=== PATIENT | male | born 1990 | race Caucasian/White ===

== ENCOUNTER 2019-06-23 08:13 | Emergency (ER) | payer MEDICAID, OTHER ==
[~2019-06-23] VITALS: Ht 165.1 cm; Wt 59.0 kg
[~2019-06-23 08:13] MED LIST: BACITRACIN15 GM TOP; BACTRIM-DS1 EA PO; IBUPROFEN600 MG ORAL; IBUPROFEN800 MG PO; IMITREX6 MG/0.5 M SQ; KEFLEX500 MG PO; KEPPRA500 MG PO; KLONOPIN0.5 MG PO; MOTRIN400 MG PO; MOTRIN800 MG PO; NEURONTIN600 MG PO; NORCO 5-325 TA1 EACH PO; PHENOBARBITAL64.8 MG PO; QUETIAPINE FUM200 MG ORAL; QUETIAPINE FUM200 MG PO; VALIUM10 MG ORAL; VICODIN 5-5001 EACH PO; VOLTAREN50 MG PO; WELLBUTRIN100 MG PO; ZOFRAN ODT4 MG ORAL
--- NOTE | 2019-06-23 08:16 | NUR ---
ED Nurse Note:Patient not found in waiting room
[2019-06-23 08:27] VITALS: BP 104/64
--- NOTE | 2019-06-23 08:32 | NUR ---
ED Nurse Note: PT WALKED IN DUE TO CHRONIC LOW BACK PAIN. DENIES RECENT INJURY OR TRAUMA. AAO X4, AMBULATES WITH STEADY GAIT.
--- NOTE | 2019-06-23 08:34 | Emergency Room Report ---
History of Present Illness General Chief Complaint: Back Pain-No Injury Source: Patient, Medical Record Present Illness HPI Patient presents with complaints of low back pain ongoing since last night Patient reports that he is also had flu symptoms with cough and congestion Denies any fall or trauma denies any chest pain denies any back or flank pain Denies any fevers Back pain is localized to the lower back region denies any radiation to the buttock area Denies any saddle paresthesia Allergies: Coded Allergies: CHLORPROMAZINE HCL (Verified Allergy, Severe, Anaphylaxis, 02/11/12) IODINE (Verified Allergy, Severe, Anaphylaxis, 02/11/12) DOXYCYCLINE (Verified Allergy, Intermediate, Anaphylaxis, 02/11/12) HALOPERIDOL (Verified Allergy, Intermediate, 02/11/12) LATEX (Verified Allergy, Intermediate, Itching, 02/11/12) PENICILLINS (Verified Allergy, Intermediate, 02/11/12) PHENYTOIN SODIUM EXTENDED (Verified Allergy, Intermediate, HIVES, 02/11/12) ZIPRASIDONE HCL (Verified Allergy, Intermediate, Hives, 01/20/13) ZIPRASIDONE MESYLATE (Verified Allergy, Intermediate, Hives, 01/20/13) Patient History Past Medical History: see triage record Reviewed Nursing Documentation: PMH: Agreed; PSxH: Agreed Nursing Documentation-PMH Past Medical History: No History, Except For Hx Cardiac Problems: Yes - CHF, HIV Hx Hypertension: No Hx Pacemaker: No Hx Asthma: Yes Hx COPD: No Hx Diabetes: Yes - HYPOGLYCEMIA Hx Cancer: No Hx Gastrointestinal Problems: No Hx Dialysis: No Hx Neurological Problems: No Hx Seizures: Yes Review of Systems All Other Systems: negative except mentioned in HPI Physical Exam Vital Signs Date Time Temp Pulse Resp B/P (MAP) Pulse Ox O2 Delivery O2 Flow Rate FiO2 06/23/19 08:27 97.5 98 16 104/64 (77) 98 Room Air Sp02 EP Interpretation: reviewed, normal General Appearance: no apparent distress Head: normocephalic, atraumatic Eyes: bilateral eye PERRL, bilateral eye EOMI ENT: hearing grossly normal, EOM grossly intact Neck: supple, no meningismus Respiratory: lungs clear, no respiratory distress, no retraction Cardiovascular #1: regular rate, rhythm Gastrointestinal: non tender, soft Musculoskeletal: normal inspection - Patient sitting up in bed laying back down no obvious focal deficits some increased discomfort is noted paraspinal lumbar 3 4 region no midline step-off Neurologic: alert, oriented x3 Skin: no rash - However mildly disheveled Lymphatic: no adenopathy Medical Decision Making Diagnostic Impression: Primary Impression: Back pain ER Course Given the history and presentation multiple differentials and consideration including but not limited to neurological, neurosurgical, other infectious process such as epidural abscess Patient was here previously with previous drug abuse however he denies that at this time Patient is afebrile without any signs of meningeal findings ambulatory without any focal findings Suspicion for epidural abscess is low Patient is provided with pain medication and requires appropriate close outpatient follow-up Last Vital Signs Date Time Temp Pulse Resp B/P (MAP) Pulse Ox O2 Delivery O2 Flow Rate FiO2 06/23/19 08:27 97.5 98 16 104/64 (77) 98 Room Air Status: improved Disposition: HOME, SELF-CARE Condition: Improved Additional Instructions: Patient is provided with the discharge instructions notified to follow up with primary doctor in the next 2-3 days otherwise return to the er with any worsening symptoms. Please note that this report is being documented using [employer] technology. This can lead to erroneous entry secondary to incorrect interpretation by the dictating instrument. Leia Snyder DO Jun 23, 2019 08:34
[2019-06-23] MEDS ORDERED: Ketorolac 60mg Inj IM ONE (08:45)
[2019-06-23 09:45] VITALS: BP 115/75
--- NOTE | 2019-06-23 09:45 | NUR ---
ER DISCHARGE NOTE: Patient is cleared to be discharged per ERMD, pt is aox4, on room air, with stable vital signs. pt was given dc instructions and list of shelters/community resources, pt refused to sign homeless form. Id band removed . pt is able to ambulate with steady gait. pt took all belongings.
== END 2019-06-23 09:45 | disposition home or self-care (01) ==
LOC: EMR 08:39
DX: M54.5 Low back pain (principal); J45.909 Unspecified asthma, uncomplicated; G40.909 Epilepsy, unspecified, not intractable, without status epilepticus; E11.9 Type 2 diabetes mellitus without complications; I50.9 Heart failure, unspecified; Z21 Asymptomatic human immunodeficiency virus [HIV] infection status; Z88.0 Allergy status to penicillin; Z91.040 Latex allergy status; Z88.8 Allergy status to other drugs, medicaments and biological substances
CPT/HCPCS: 96372; Z7502; 99283